=== PATIENT | female | born 1985 | race Caucasian/White ===

== ENCOUNTER 2017-02-12 13:30 | Emergency (ER) | payer BC, OTHER ==
[~2017-02-12] VITALS: Ht 162.6 cm; Wt 70.2 kg
[2017-02-12 13:36] VITALS: TEMP 36.6; Ht 162.6 cm; Wt 70.2 kg
[2017-02-12] MEDS ORDERED: EMPTY 8 DRAM VIAL ONE (14:20)
[2017-02-12 14:32] VITALS: BP 117/72; PULSE 72; O2SAT 97
--- NOTE | 2017-02-12 17:26 | EMERGENCY ROOM VISIT NOTE ---
History Report prepared by Colten: Rogelio Arteaga Under the Supervision of: Dr. Hung Jefferson M.D. First contact with patient: 13:50 Chief Complaint: ALLERGIC REACTION Stated Complaint: REACTION/HIVES TO SOMETHING Nursing Triage Summary: Pt had IUD inserted half hour ago. Pt states "I started getting hives from iodine I think." Itchiness. Denies allergy to iodine History of Present Illness The patient is a 31 year old female who presents to the Emergency Room with complaints of an improving allergic reaction that started shortly after having an IUD placed at 1230 today. The patient had an IUD inserted through the [facility] service. She became itchy and noticed hives on her cheeks, forehead, and chest shortly after the procedure. She has not had any problems breathing. She denies any pain or swelling vaginally. The patient has never had a reaction like this before. She denies using any new soaps or detergents. She had some apple juice after the procedure but is not known to be allergic to apples. The patient was told that the reaction may be attributed to the Betadine used prior to the procedure. She denies any prior iodine allergy. Source of History: patient Onset: approximately 1230 Position: other (global) Symptom Intensity: mild Quality: other (allergic reaction) Timing: other (improving) Associated Symptoms: + rash, No SOB Review of Systems See HPI for pertinent positives & negatives. A total of 10 systems reviewed and were otherwise negative. Past Medical & Surgical Medical Problems: (1) premature rupture of membranes (PPROM) with onset of labor within 24 hours of rupture in third trimester, antepartum Family History No pertinent family history Social History Smoking Status: Never Smoker Occupation Status: employed Current/Historical Medications Scheduled Multivit/Min/Iron/Fol Ac/Pren ( Vitamin), 1 TAB PO DAILY Miscellaneous Medications Fish Oil ([place]-3), 1 CAP PO Allergies Coded Allergies: [place] (Unverified Allergy, Mild, SHORTNESS OF BREATH, 02/12/17) ITCHY THROAT Physical Exam Vital Signs Date Time Temp Pulse Resp B/P Pulse Ox O2 Delivery O2 Flow Rate FiO2 02/12/17 14:32 72 18 117/72 97 02/12/17 13:57 Room Air 02/12/17 13:36 96 Room Air 02/12/17 13:36 36.6 78 18 118/55 96 Room Air Physical Exam Constitutional: Vital signs reviewed. Eyes: Pupils are equal round reactive to light. Conjunctiva are noninjected. ENT: Pharynx is clear without erythema or exudate. Mucous membranes are moist. Neck supple without meningeal signs. No uvular or tongue or swelling. Respiratory: Clear to auscultation bilaterally. No wheezing or stridor. Breath sounds are equal bilaterally. Cardiovascular: Regular rate and rhythm. No rubs or gallops. GI: Soft, nondistended and nontender. Bowel sounds are present. Musculoskeletal: No peripheral edema. No lower extremity tenderness. Integumentary: No cyanosis. Scattered hives to the arms of the left upper chest , abdomen, and face. Neurological: The patient is awake and alert. No focal deficits. Psychiatric: Normal affect. Genitourinary: No vulvar swelling or erythema. Medical Decision & Procedures Medications Administered Medications (Trade) Dose Ordered Sig/Kim Route Start Time Stop Time Status Last Admin Dose Admin Diphenhydramine HCl (Benadryl Cap) 50 mg NOW ONCE PO 02/12/17 14:15 02/12/17 14:16 DC 02/12/17 14:27 50 MG ED Course 1352: The patient was evaluated in room A2. A complete history and physical exam was performed. 1414: Discussed the case with Dr. Nguyen, Obstetrics & Gynecology. He does not believe that the patient's reaction is from the IUD. 1415: Benadryl 50 mg PO. 1425: Upon reevaluation, the patient appeared to have improvement of her symptoms. I discussed tonight's findings with her. She verbalized agreement of the treatment plan. She was discharged home. Medical Decision This is a 31-year-old female who presents with generalized pruritus and rash consistent with allergic reaction. I did perform a limited focused review of portions of the patient's old chart on the electronic medical record. The patient has had no recent pertinent visits to this hospital. I did evaluate the patient as noted above. The patient is presenting with generalized pruritus and rash after having an IUD placed. On examination she has scattered urticaria which appear to be improving. There was one erythematous lesion on the left breast medial to the nipple which felt nodular in nature. She states she had not noticed this earlier and she is currently breast-feeding. She was advised to have this reevaluated by a primary care physician or her campus dean for further evaluation. Her hives seemed to be improving. At this time the cause of her reaction is unclear but the most likely consideration would be the Betadine. I did talk to Dr. Nguyen of [employer] regarding her case. He felt that was the most likely cause as well and did not feel the IUD would be causing her any symptoms. When other possibilities the apple juice she drank but she has had up to use many times prior without any reaction. Her symptoms are improving at this time and she is safe for discharge. She was given 50 mg Benadryl to take home with her as she drove here. She was advised to follow up with a regular physician as well as an core inspector for further evaluation. Until this is clarified further she was told that she should list her iodine and Betadine as a potential allergen. She was advised to return for any worsening symptoms and discharged in good condition. Consults Time Called: 1410 Consulting Physician: Dr. Nguyen, Obstetrics & Gynecology Returned Call: 1414 He does not believe that the patient's reaction is from the IUD. Impression Primary Impression: Allergic reaction Scribe Attestation The scribe's documentation has been prepared under my direct and personally reviewed by me in its entirety. I confirm that the note above accurately reflects all work, treatment, procedures, and medical decision making performed by me. Departure Information Dispostion Home / Self-Care Referrals No Doctor, Assigned (PCP) Forms HOME CARE DOCUMENTATION FORM, IMPORTANT VISIT INFORMATION Patient Instructions ED Allergic Reaction General Other, My [facility] Additional Instructions You have been examined and treated today on an emergency basis only. This is not a substitute for, or an effort to provide, complete comprehensive medical care. It is impossible to recognize and treat all injuries or illnesses in a single emergency department visit. It is therefore important that you follow up closely with a regular physician and core inspector. Call as soon as possible for an appointment. Return for worsening symptoms or if you develop difficulty breathing, swelling to your face or tongue or any other concerning symptoms. Problem Qualifiers Primary Impression: Allergic reaction Encounter type: initial encounter Qualified Codes: T78.40XA - Allergy, unspecified, initial encounter
== END 2017-02-12 14:33 | disposition home or self-care (01) ==
LOC: C.EDB 13:32 → C.EDA 14:33
DX: T78.40XA Allergy, unspecified, initial encounter (principal); X58.XXXA Exposure to other specified factors, initial encounter

== ENCOUNTER → 2017-02-12 | Outpatient (CLI) | payer BC ==
[~2017-02-12] MED LIST: OMEG10007 PO; PRENTAB26 PO
[2017-02-17 11:51] LABS: CHLAMYDIA TRACH RNA*** NOT DETECTED (NOT DETECTED); GC (NEIS GONORRHOEAE)RNA** NOT DETECTED (NOT DETECTED)
== END | disposition home or self-care (01) ==
LOC: C.LABSPEC 17:34
PROVIDERS: ATTEND Physician Assistant
DX: Z30.430 Encounter for insertion of intrauterine contraceptive device (principal)